=== PATIENT | female | born 1970 | race Caucasian/White ===

== ENCOUNTER 2023-04-04 07:15 | Emergency (ER) | payer OTHER, SELFPAY ==
[2023-04-04 07:20] VITALS: BP 128/71; PULSE 94; RESP 18; TEMP 37.2; O2SAT 96; BMI 51.7
--- NOTE | 2023-04-04 07:46 | ED.GENADULT ---
HPI - General Adult General Chief complaint: Skin/Abscess/Foreign Body Stated complaint: Rear ignacio Time Seen by Provider: 04/04/23 07:24 Source: patient Mode of arrival: ambulatory Limitations: no limitations History of Present Illness HPI narrative: 53-year-old female with insulin-dependent diabetes, known to me from [facility] presents the emergency department with tenderness and swelling of her left gluteal area. This started a couple days ago. There may have been a small pimple or similar superficial skin lesion that she thinks may have popped. Since then she has noticed increased tenderness and swelling, no fluctuant area or further drainage. No trauma or injury. No difficulty with voiding or stooling. Is feeling like a low-grade fever today and is noticing that her blood sugars have been on characteristically high for the last couple of days, 3-400. No nausea or vomiting, no shortness of breath or weakness. No prior history of similar lesions. No prior history of surgery or surgical drainage to this area. Pain is achy and constant, worse to palpation. Does not radiate. Past medical history notable for hypertension, diabetes, obesity. Medications are reviewed and listed is accurate per nursing notes. She has an allergy to a tore the statin and contrast dye but no other medications or antibiotics. She is a nonsmoker. ROS is notable for the skin concerns as above, otherwise denies times 12 systems. Related Data Home Medications Medication Instructions Recorded Confirmed blood-glucose sensor (Dexcom G6 #3 ea 05/08/22 08/05/22 Sensor device) blood-glucose transmitter (Dexcom #1 ea 05/08/22 08/05/22 G6 Transmitter device) celecoxib 200 mg capsule 200 mg PO PRN 05/08/22 08/05/22 dulaglutide 1.5 mg/0.5 mL ml subcut 05/08/22 08/05/22 subcutaneous pen injector (Trulicity) insulin aspart U-100 100 unit/mL ml subcut 05/08/22 08/05/22 (3 mL) subcutaneous pen (Novolog FlexPen U-100 Insulin aspart) insulin degludec 200 unit/mL (3 unit subcut 05/08/22 08/05/22 mL) subcutaneous pen (Tresiba FlexTouch U-200 insulin) lisinopril 10 mg tablet 10 mg PO QDAY 05/08/22 08/05/22 metformin 500 mg tablet,extended ea PO 05/08/22 08/05/22 release 24 hr pen needle, diabetic 31 gauge x #1,200 ea 05/08/22 08/05/22 5/16 (BD Ultra-Fine Short Pen Needle) pravastatin 80 mg tablet 80 mg PO 05/08/22 08/05/22 Allergies Allergy/AdvReac Type Severity Reaction Status Date / Time atorvastatin [From Lipitor] Allergy sore Verified 08/22/22 10:19 joints and muscles bee venom protein (honey bee) Allergy Anaphylaxis Verified 08/22/22 10:19 contrast dye AdvReac nausea and Uncoded 08/22/22 10:19 vomiting PFSH PFSH Surgical History S/P right knee arthroscopy (03/15/09) ?Z98.890 - Other specified postprocedural states (ICD-10) Status post arthroscopic partial medial meniscectomy ?Z98.890 - Other specified postprocedural states (ICD-10) Status post right rotator cuff repair (01/10/15) ?Z98.890 - Other specified postprocedural states (ICD-10) History of foot surgery (07/05/18) ?Z98.890 - Other specified postprocedural states (ICD-10) Social History Smoking Status: Former smoker What tobacco products do you use: cigarettes Smoking quit date/years: >15 years ago Exam Const: Vital Signs, click to edit/add: Vital Signs - 24 hr 04/04/23 07:20 Temperature 98.9 F Pulse Rate [Right Pulse Oximeter] 94 Respiratory Rate 18 Blood Pressure [Ri ght Upper Arm] 128/71 Pulse Oximetry 96 Oxygen Delivery Me thod Room Air Documenting provider has reviewed patient's vital signs: yes Common normals: no apparent distress General appearance: cooperative, comfortable and well kempt Other: Good historian. Appears well nourished, well hydrated, nontoxic. HENMT: Common normals: normocephalic Head and scalp: normocephalic Other: Normal lips and moist mucosa Eye: Other: Normal appearing eyes, visual days and eye contact. Resp: Common normals: normal respiratory effort and no use of accessory muscles Effort & inspection: able to speak in complete sentences Back & Pelvis: Other: Gluteal areas examined. There is a slight carla hue but no redness on the left upper gluteal region, near the gluteal cleft. It feels slightly [place] and is mildly tender but there is no area of fluctuance. Extensive exploration does not reveal any open wound, pore or broken skin. Good hygiene. Normal appearing rectal mucosa. Does have a gluteal cleft superiorly but no evidence of fistula or tracking. Overall swollen area is probably about 4 cm x 4 cm, round and not especially raised. It is not warm to the touch. Extremity: Common normals: normal capillary refill and no pedal edema Neuro: Speech: speech normal Gait (neuro): normal gait Motor exam: no movement abnormalities noted Psych: Appearance: well kempt Attitude: engaged Insight: insight good Judgement: judgment good Skin: Common normals: no rashes or lesions noted Narrative: No other skin lesions or rashes appreciated. General skin exam: no rashes or lesions noted Course Course Hospital Course: Seems to be an early abscess. Cannot exclude fistula or communication with skin. The area currently is quite [place] and nonfluctuant. I do not think advanced imaging will be helpful. It seems like we are catching this developing infection early. There are no fevers or systemic symptoms to suggest sepsis at this time. Elevated blood sugars are not surprising in the setting of this pathology. Initially, we discussed blood sugar management. She will increase her short-acting insulin 20-25% and re-dose every 3 hours as needed to bring blood sugars under 200. This will help fight infection. She will leave her other interventions including long-acting insulin the same as once the patient starts antibiotics are blood sugars do tend to improve fairly rapidly. Counseled that this still may require surgical drainage but it is not ready at this time as there is no fluctuant area. Antibiotics have a greater than 50% chance of treating this infection without the need for drainage. I would like for her to follow-up with the general surgery team in 2-3 days for recheck and drainage if indicated at that time. Referral has been placed. Counseled on alarm symptoms that would warrant repeat ED presentation. She verbalized understanding and agreement. Okay to use Tylenol and ibuprofen as needed for pain control. Counseled on Sitz baths. Begin combined Bactrim and doxycycline for antibiotic control. She verbalizes understanding and agreement and has no further questions. Vital Signs Vital signs: Initial Vital Signs Temperature 98.9 F 04/04/23 07:20 Temperature Source Temporal Artery Scan 04/04/23 07:20 Pulse Rate 94 04/04/23 07:20 Respiratory Rate 18 04/04/23 07:20 Blood Pressure 128/71 04/04/23 07:20 Blood Pressure Mean 90 04/04/23 07:20 Blood Pressure Position Sitting 04/04/23 07:20 Pulse Oximetry 96 04/04/23 07:20 Oxygen Delivery Method Room Air 04/04/23 07:20 Vital Signs Temperature 98.9 F 04/04/23 07:20 Pulse Rate 94 04/04/23 07:20 Respiratory Rate 18 04/04/23 07:20 Blood Pressure 128/71 04/04/23 07:20 Pulse Oximetry 96 04/04/23 07:20 Oxygen Delivery Method Room Air 04/04/23 07:20 Temperature 98.9 F 04/04/23 07:20 Pulse Rate 94 04/04/23 07:20 Respiratory Rate 18 04/04/23 07:20 Blood Pressure 128/71 04/04/23 07:20 Pulse Oximetry 96 04/04/23 07:20 Oxygen Delivery Method Room Air 04/04/23 07:20 Discharge Plan Discharge Clinical Impression: Pilonidal abscess Patient Disposition: Home w/ Parent or Adult Condition: Stable Instructions: Pilonidal Cyst (ED), Sitz Bath (DC) Additional Instructions: As we discussed, there seems to be a developing abscess on your bottom. Unfortunately, these are quite common. Often, these need to be drained by a simple office procedure. Unfortunately, the abscess has not matured enough to be drained. Hopefully, if we start antibiotics, we can prevent things from worsening and ultimately heal without needing to perform any procedures. A history of diabetes does increase your risk of worsening infection. I have started you on a combination of 2 antibiotics. These are okay to take at the same time. Both may cause diarrhea and tummy upset. It is okay to use Imodium to help counteract any diarrhea and any antacids that you may find helpful. This needs to be rechecked in 2-3 days. It is likely to require drainage at that time, therefore I will have you follow-up with 1 of our general surgeons. Please call them to coordinate an appointment for Thursday or Thursday. Please try to call right away on Thursday morning. I have submitted a referral so this should help prompt the appointment as well. I would like for you to do Sitz baths which are just basically soaking your bottom in warm soapy water for 20 minutes twice daily. This can often bring the infection to the surface of the skin and promote drainage which is actually helpful. If it does drain, this is a good thing and would not necessarily warrant earlier follow-up. If it does drain, please continue the antibiotics. It is okay to use Tylenol and/or ibuprofen for pain control if needed, sleep aids like melatonin or Tylenol p.m. for sleep. Sometimes these infections worsen. If you start having high fevers, marked worsening in swelling, severe weakness or other complications, come back to the emergency department. Increase your short-acting insulin as needed, every 3 hours to bring your blood sugars back under 200. Take your antibiotics for 10 days or unless directed otherwise. You may have extra tablets due to the quantities automatically put into the vending machine. Activity Level: Activity as Tolerated Discharge Diet: Regular Prescriptions: No Action Tresiba FlexTouch U-200 200 unit/mL (3 mL) insulin pen subcut metformin 500 mg tablet extended release 24 hr PO lisinopril 10 mg tablet 10 mg PO QDAY pravastatin 80 mg tablet 80 mg PO (DME) Dexcom G6 Sensor Device See Rx Instructions .ROUTE .MEDSUPPLY Qty: 3 Patient Comments: USE DIRECTED Rx Instructions: As directed celecoxib 200 mg capsule 200 mg PO PRN Patient Comments: TAKE 1 CAPSULE BY MOUTH ONCE DAILY WITH A MEAL. USE ONLY NEEDED FOR PAIN Trulicity 1.5 mg/0.5 mL pen injector subcut Patient Comments: ADMINISTER 1.5 MG UNDER THE SKIN 1 TIME WEEKLY insulin aspart U-100 [Novolog FlexPen U-100 Insulin] 100 unit/mL (3 mL) insulin pen subcut (DME) Dexcom G6 Transmitter Device See Rx Instructions .ROUTE .MEDSUPPLY Qty: 1 Patient Comments: USE DIRECTED Rx Instructions: As directed (DME) pen needle, diabetic [BD Ultra-Fine Short Pen Needle] 31 gauge x 5/16 needle See Rx Instructions .ROUTE .MEDSUPPLY Qty: 1200 Patient Comments: USE TO ADMINISTER INSULIN AT HOME Rx Instructions: As directed Follow Up/Referrals: Cal Ferraro MD [Staff Physician] - 2 Days (Recheck pilonidal early abscess, per surgeon, Thursday or Thursday, okay to schedule with partner) Wander Marin MD [Referring] - Stand Alone Forms: [employer] Info Instructions
[2023-04-04] MEDS: DOXYCYCLINE HYCLATE 100 MG PO (07:57)
== END 2023-04-04 08:02 | disposition home or self-care (01) ==
LOC: ED 07:51
PROVIDERS: Emergency Provider Family Medicine
DX: L05.01 Pilonidal cyst with abscess (principal)
CPT/HCPCS: 99283; A9270

== ENCOUNTER 2023-04-07 10:44 | Outpatient (CLI) | payer OTHER, SELFPAY ==
--- NOTE | 2023-04-07 11:30 | CRLHL7_ITS ---
For Patients: As a result of the Century Cures Act, medical imaging exams and procedure reports are released immediately into your electronic medical record. You may view this report before your referring provider. If you have questions, please contact your health care provider. INDICATION: Pilonidal cyst with abscess. TECHNIQUE: CT pelvis without contrast. COMPARISON: None. FINDINGS: A 5 x 2 cm abscess suspected in the left perineum near the midline seen for example on axial series 6, image 6. Extensive air is present in the superficial soft tissues in this same general region. No other fluid collections. Remainder of the pelvic soft tissues are unremarkable. Visualized GI tract unremarkable. Pelvic organs unremarkable. No sign of osteomyelitis. IMPRESSION: 5 x 2 cm left perineal abscess with the larger area of surrounding soft tissue air. Please note that all CT scans at this facility use dose modulation, iterative reconstruction, and/or weight-based dosing when appropriate to reduce radiation dose to as low as reasonably achievable. Dictated by Aly Mattson MD @ 04/07/2023 1:50:14 PM (Electronically Signed)
== END 2023-04-07 10:45 | disposition home or self-care (01) ==
PROVIDERS: PCP Family Medicine; Visit Provider Surgery
DX: L05.01 Pilonidal cyst with abscess (principal)
CPT/HCPCS: 72192; 80048

== ENCOUNTER 2023-04-07 12:07 | Inpatient (IN) | payer OTHER, SELFPAY ==
[2023-04-07 12:19] VITALS: O2SAT 93
[2023-04-07] MEDS: 0.9 % SODIUM CHLORIDE 1000 ml 1,000 ML 2000 ML IV ×2 (12:53→13:57)
[2023-04-07] MEDS: PIPERACILLIN/TAZOBACTAM 4.5 GM in 0.9 % SODIUM CHLORIDE Mini-bag 100 ML IVPB (12:57)
[2023-04-07 12:59] LABS: HCO3 VBG 25 mmol/L (21-28); Lactate* 2.1 mmol/L (0.5-1.9); PCO2 VBG 40 mmHG (40-50); PO2 VBG 30.4 mmHG (25-47); pH VBG 7.408 (7.32-7.43)
[2023-04-07 13:13] VITALS: BP 142/73; PULSE 112; RESP 22; TEMP 36.7; O2SAT 93; BMI 51.7
[2023-04-07 13:18] LABS: Albumin* 3.1 g/dL (3.3-5.0); Chloride* 98 mmol/L (96-114)
[2023-04-07 13:19] LABS: Potassium* 3.8 mmol/L (3.6-5.1); Sodium* 131 mmol/L (135-149)
[2023-04-07 13:21] LABS: Creatinine* 0.7 mg/dL (0.5-1.5); Est. Creatinine Clearance* 104.79; Estimated Glomerular Filt Rate 102 ml/min
[2023-04-07 13:22] LABS: Alanine Aminotransferase* 21 U/L (4-35); Alkaline Phosphatase* 196 U/L (40-150); Anion Gap 11 mEq/L (7-15); Aspartate Amino Transferase* 20 U/L (12-35); Bilirubin Total* 0.9 mg/dL (0.1-1.5); Blood Urea Nitrogen* 19 mg/dL (7-30); Carbon Dioxide* 22 mmol/L (20-32); Glucose* 328 mg/dL (60-115); Total Protein* 6.1 g/dL (6.0-8.3)
[2023-04-07] MEDS: HYDROmorphone 0.5 mg/0.5 ml inj IVP ×2 (13:34→16:09)
[2023-04-07] MEDS: SODIUM CHLORIDE 0.9 % (FLUSH) 10 ML SYRINGE 5 ML IVF (13:35)
[2023-04-07 13:39] LABS: Procalcitonin* 1.12 ng/mL (<0.50)
--- NOTE | 2023-04-07 14:15 | PM.IMHP1 ---
Hospitalist- H&P: HPI History of Present Illness Time Seen by Provider: 11:00 Date Seen: 04/07/23 Chief complaint: Direct Admit Narrative: Jw Alcaraz is a 53 year old female with IDDM who noticed a tender spot on her left buttock about 5 days ago and it got worse, hard, and tender. She had a fever Thursday night and broke out in a sweat when it broke. She has not had any other fevers, chills, or rigors. She overall feels okay, but when she got up to the floor she started vomiting and noted that she did not know where that came from and had not been nauseous or throwing up prior to this. She presented originally to the surgery clinic today where Dr. Cooper saw her. Dr. Cooper ordered labs and a CT and asked that she be admitted directly from clinic. Review of Systems Status of ROS: Reports: 10 or more systems reviewed and unremarkable except as noted in History and below [facility] Medical History (Updated 04/07/23 @ 14:51 by Kerri Gupta MD) Adhesive capsulitis of left shoulder ?M75.02 - Adhesive capsulitis of left shoulder (ICD-10) Subscapularis tendinitis of right shoulder ?M77.8 - Other enthesopathies, not elsewhere classified (ICD-10) Degenerative arthritis of left knee ?M17.12 - Unilateral primary osteoarthritis, left knee (ICD-10) Diabetic neuropathy ?E11.40 - Type 2 diabetes mellitus with diabetic neuropathy, unspecified (ICD-10) Plantar fasciitis ?M72.2 - Plantar fascial fibromatosis (ICD-10) Malignant neoplasm cervix (~2002) ?C53.9 - Malignant neoplasm of cervix uteri, unspecified (ICD-10) Asthma ?J45.909 - Unspecified asthma, uncomplicated (ICD-10) Extended spectrum beta lactamase (ESBL) resistance ?Z16.12 - Extended spectrum beta lactamase (ESBL) resistance (ICD-10) HTN (hypertension) ?I10 - Essential (primary) hypertension (ICD-10) JOLIE (obstructive sleep apnea) ?G47.33 - Obstructive sleep apnea (adult) (pediatric) (ICD-10) GERD (gastroesophageal reflux disease) ?K21.9 - Gastro-esophageal reflux disease without esophagitis (ICD-10) Hyperlipidemia ?E78.5 - Hyperlipidemia, unspecified (ICD-10) Diabetes mellitus ?E11.9 - Type 2 diabetes mellitus without complications (ICD-10) Morbid obesity with BMI of 50.0-59.9, adult ?E66.01 - Morbid (severe) obesity due to excess calories (ICD-10) ?Z68.43 - Body mass index [BMI] 50.0-59.9, adult (ICD-10) Osteoarthritis of knees, bilateral ?M17.0 - Bilateral primary osteoarthritis of knee (ICD-10) Surgical History (Updated 04/07/23 @ 14:36 by Kerri Gupta MD) H/O colposcopy with cervical biopsy ?Z98.890 - Other specified postprocedural states (ICD-10) S/P laparoscopic cholecystectomy (~02/2005) ?Z90.49 - Acquired absence of other specified parts of digestive tract (ICD-10) S/P right knee arthroscopy (03/15/09) ?Z98.890 - Other specified postprocedural states (ICD-10) Status post arthroscopic partial medial meniscectomy ?Z98.890 - Other specified postprocedural states (ICD-10) Status post right rotator cuff repair (01/10/15) ?Z98.890 - Other specified postprocedural states (ICD-10) History of foot surgery (07/05/18) ?Z98.890 - Other specified postprocedural states (ICD-10) Family History (Updated 04/07/23 @ 14:37 by Kerri Gupta MD) Paternal Grandmother Alcohol dependence Aunt Breast cancer Paternal Grandfather Diabetes Mother Colon cancer High blood pressure Other Drug dependence Social History (Updated 04/07/23 @ 14:38 by Kerri Gupta MD) Narrative: Works as recreation advisor for [employer] What is your current living situation?: I presently have a place to live Problems where you live: no known problems Problems where you live details: none In the past 12 months, utilities in danger of being shut off: no In the past 12 mos, have been you worried that your food would run out before you had money to buy more?: never true In the past 12 mos, the food you bought just didn't last and you didn't have money to buy more?: never true Highest level of school completed/degree received: Bachelor's degree Smoking Status: Former smoker What tobacco products do you use: cigarettes Smoking quit date/years: >15 years ago Caffeine: Yes How often does anyone, including family, friends and others, physically hurt you: never How often does anyone, including family, friends and others, insult or talk down to you: never How often does anyone, including family, friends and others, threaten you with harm: never How often does anyone, including family, friends and others, scream or curse at you: never service: No Meds Home Medications and Allergies Home Medications Medication Instructions Recorded Confirmed Type blood-glucose sensor (Dexcom G6 #3 ea 05/08/22 04/07/23 History Sensor device) blood-glucose transmitter (Dexcom #1 ea 05/08/22 04/07/23 History G6 Transmitter device) celecoxib 200 mg capsule 200 mg PO Q24H PRN 05/08/22 04/07/23 History dulaglutide 1.5 mg/0.5 mL 1.5 mg subcut Q7D 05/08/22 04/07/23 History subcutaneous pen injector (Trulicity) insulin aspart U-100 100 unit/mL 1 sliding scale dose subcut 05/08/22 04/07/23 History (3 mL) subcutaneous pen (Novolog TIDWMEAL FlexPen U-100 Insulin aspart) insulin degludec 200 unit/mL (3 250 unit subcut DAILY 05/08/22 04/07/23 History mL) subcutaneous pen (Tresiba FlexTouch U-200 insulin) lisinopril 10 mg tablet 10 mg PO QDAY 05/08/22 04/07/23 History pen needle, diabetic 31 gauge x #1,200 ea 05/08/22 04/07/23 History 5/16 (BD Ultra-Fine Short Pen Needle) insulin aspart U-100 100 unit/mL 25 unit subcut TIDWMEAL 04/07/23 04/07/23 History (3 mL) subcutaneous pen (Novolog FlexPen U-100 Insulin aspart) simvastatin 10 mg tablet 10 mg PO QHS 04/07/23 04/07/23 History Allergies Allergy/AdvReac Type Severity Reaction Status Date / Time atorvastatin [From Lipitor] Allergy sore Verified 04/07/23 10:33 joints and muscles bee venom protein (honey bee) Allergy Anaphylaxis Verified 04/07/23 10:33 contrast dye AdvReac nausea and Uncoded 04/07/23 10:33 vomiting Exam Narrative: Exam Narrative: General: No acute distress. Awake alert oriented x3. Morbidly obese. HEENT: Normocephalic atraumatic, pupils equally round and reactive to light and accommodation. Oropharynx clear. Mucous membranes are moist. No cervical lymphadenopathy, thyromegaly or carotid bruits. No JVD. Cardiovascular: Mildly tachycardic, regular. No murmurs, gallops, or rubs. Chest: No increased work of breathing. No use of accessory muscles. Clear to auscultation bilaterally. No crackles or wheezes. Abdomen: Bowel sounds present. Soft, nondistended, nontender. Genitourinary: Tender induration of the left buttock from inside the gluteal fold that extends down to the anus, but does not involve it circumferentially. There is no peritoneal induration or erythema. No fluctuance, blistering or necrosis. No crepitus. Area of erythema is approximately 10 inches in diameter. Extremities: No edema, no cyanosis or clubbing. Skin: No jaundice, no pallor, no rashes. Neuro: Grossly intact. No focal deficits. Const: Vital Signs, click to edit/add: Vital Signs - 24 hr 04/07/23 12:19 04/07/23 13:13 04/07/23 13:13 Temperature 98.0 F Pulse Rate [Pulse Oximeter] 112 H Respiratory Rate 22 Blood Pressure [Ri ght Arm] 142/73 H Pulse Oximetry 93 93 93 Oxygen Delivery Mi thod Room Air Hospitalist - H&P: Result Labs Labs: BMP 04/07/23 12:39 Sodium 131 L Potassium 3.8 Chloride 98 Carbon Dioxide 22 BUN 19 Creatinine 0.7 Glucose 328 H Liver Function 04/07/23 Range/Units 12:39 Total Bilirubin 0.9 (0.1-1.5) mg/dL AST 20 (12-35) U/L ALT 21 (4-35) U/L Alkaline Phosphatase 196 H (40-150) U/L Albumin 3.1 L (3.3-5.0) g/dL Ordering Physician: Petra Cooper M.D. Date of Service: 04/07/23 Procedure(s): CT pelvis wo con Accession Number(s): [id number] cc: Angelia Ngo M.D.; Petra Cooper M.D.~ For Patients: As a result of the 21st Century Cures Act, medical imaging exams and procedure reports are released immediately into your electronic medical record. You may view this report before your referring provider. If you have questions, please contact your health care provider. INDICATION: Pilonidal cyst with abscess. TECHNIQUE: CT pelvis without contrast. COMPARISON: None. FINDINGS: A 5 x 2 cm abscess suspected in the left perineum near the midline seen for example on axial series 6, image 6. Extensive air is present in the superficial soft tissues in this same general region. No other fluid collections. Remainder of the pelvic soft tissues are unremarkable. Visualized GI tract unremarkable. Pelvic organs unremarkable. No sign of osteomyelitis. IMPRESSION: 5 x 2 cm left perineal abscess with the larger area of surrounding soft tissue air. Please note that all CT scans at this facility use dose modulation, iterative reconstruction, and/or weight-based dosing when appropriate to reduce radiation dose to as low as reasonably achievable. Dictated by Aly Mattson MD @ 04/07/2023 1:50:14 PM (Electronically Signed) Assessment and Plan Assessment and plan (1) Sepsis: Problem comment: Secondary to left buttock cellulitis. Admit to CCU. Obtain sepsis labs including lactate and blood cultures. Start Zosyn and vancomycin. Give IV fluid bolus of 2 L and recheck lactate. If lactate remains elevated, give more IV fluid. Keep NPO as I anticipate she will need surgery. Status: Acute (2) Necrotizing soft tissue infection: Problem comment: Concerning for possible Patrick's gangrene, transfer to colorectal surgery Status: Acute (3) Cellulitis of buttock: Problem comment: Left Status: Acute (4) JOLIE (obstructive sleep apnea): Problem comment: 01/29/2019 AHI-5, in REM 17 Asymptomatic Not in menopause yet High risk to occur as she gets older Status: Chronic (5) HTN (hypertension): Status: Chronic (6) GERD (gastroesophageal reflux disease): Problem comment: EGD 02/2011 gastroesophogeal reflux disease Status: Acute (7) Morbid obesity with BMI of 50.0-59.9, adult: Problem comment: BMI 54.7 Status: Acute (8) Diabetes mellitus: Problem comment: - Insulin-dependent - Diagnosis 1999. Type II on diagnosis Office visit 08/26 Discussed adding in novolog possibly next visit and focusing on carb counting and a set carb plan daily ~ Apr 2011: starting novalog with meals (A1c 9), stopping byetta, decreasing glucotrol XL slightly. Continue lantus, but decrease dose form 100 down to 80 while starting novalog. Next eye exam 29 July 2015: Endocrinology consult Dr. Waters: Stop Glypizide, start Bydureon 2mg once weekly. 05/08/22 HgbA1C 7.9% Status: Chronic (9) Hyperlipidemia: Problem comment: Apr 2011: changed from simvastatin 80mg to pravastatin due to muscle injury risk. February 2014: new recs, changed form pravastatin/zetia to Atorvastatin (Lipitor) 80mg. March 2014: Muscle soreness shortly after starting Atorvastatin (Lipitor), CK normal. Plan to restart pravastatin. Status: Chronic Plan Critical care time: 60 minutes for time spent in direct patient care, consultation with general surgery, discussion with staff, review of patient's medical chart and imaging, phone calls for transfer.
[2023-04-07 14:44] LABS: Lactate* 1.7 mmol/L (0.5-1.9)
--- NOTE | 2023-04-07 14:45 | PC.NURSE ---
End of Shift Note: I assumed care of patient once provider made the decision to have patient ccu status. Only have take care patient for a couple of hours she is alert and orientated. Did receive a dose of Dilaudid for the pain she is having. After receiving pain medication she is resting better. She will be transferring to a higher level care at some point today. She did ambulate to the bathroom with stand by assist. Currently awaiting her labs results to see what we are doing next for interventions.
--- NOTE | 2023-04-07 14:52 | P.DS_ITS ---
Transfer Discharge Sum: Prov Provider Date Seen: 04/07/23 Date of admission: 04/07/23 12:07 Primary care physician: Angelia Ngo MD Attending physician on discharge: Kerri Gupta Anticipated date of transfer: 04/07/23 Receiving physician/facility: [facility], Dr. Arechiga DS: Diagnosis Discharge Diagnosis (1) Sepsis: Status: Acute Problem details: Secondary to left buttock cellulitis. Admit to CCU. Obtain sepsis labs including lactate and blood cultures. Start Zosyn and vancomycin. Give IV fluid bolus of 2 L and recheck lactate. If lactate remains elevated, give more IV fluid. Keep NPO as I anticipate she will need surgery. 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 February 2014: new recs, changed form pravastatin/zetia to Atorvastatin (Lipitor) 80mg. March 2014: Muscle soreness shortly after starting Atorvastatin (Lipitor), CK normal. Plan to restart pravastatin. (7) Morbid obesity with BMI of 50.0-59.9, adult: Status: Acute Problem details: BMI 54.7 (8) Diabetes mellitus: Status: Chronic Problem details: - Insulin-dependent - Diagnosis 1999. Type II on diagnosis Office visit 08/26 Discussed adding in novolog possibly next visit and focusing on carb counting and a set carb plan daily ~ Apr 2011: starting novalog with meals (A1c 9), stopping byetta, decreasing glucotrol XL slightly. Continue lantus, but decrease dose form 100 down to 80 while starting novalog. Next eye exam 29 July 2015: Endocrinology consult Dr. Waters: Stop Glypizide, start Bydureon 2mg once weekly. 05/08/22 HgbA1C 7.9% Transfer Discharge Sum: Med Medications Active and Home Medications: Home Medications blood-glucose sensor (Dexcom G6 Sensor device) #3 ea 05/08/22 [History Confirmed 04/07/23] blood-glucose transmitter (Dexcom G6 Transmitter device) #1 ea 05/08/22 [History Confirmed 04/07/23] celecoxib 200 mg capsule 200 mg PO Q24H PRN 05/08/22 [History Confirmed 04/07/23] dulaglutide 1.5 mg/0.5 mL subcutaneous pen injector (Trulicity) 1.5 mg subcut Q7D 05/08/22 [History Confirmed 04/07/23] insulin aspart U-100 100 unit/mL (3 mL) subcutaneous pen (Novolog FlexPen U-100 Insulin aspart) 1 sliding scale dose subcut TIDWMEAL 05/08/22 [History Confirmed 04/07/23] insulin degludec 200 unit/mL (3 mL) subcutaneous pen (Tresiba FlexTouch U-200 insulin) 250 unit subcut DAILY 05/08/22 [History Confirmed 04/07/23] lisinopril 10 mg tablet 10 mg PO QDAY 05/08/22 [History Confirmed 04/07/23] pen needle, diabetic 31 gauge x 5/16 (BD Ultra-Fine Short Pen Needle) #1,200 ea 05/08/22 [History Confirmed 04/07/23] insulin aspart U-100 100 unit/mL (3 mL) subcutaneous pen (Novolog FlexPen U-100 Insulin aspart) 25 unit subcut TIDWMEAL 04/07/23 [History Confirmed 04/07/23] simvastatin 10 mg tablet 10 mg PO QHS 04/07/23 [History Confirmed 04/07/23] Active Medications Hydromorphone HCl (Hydromorphone 0.5 Mg/0.5 Ml Inj) 0.5 - 1 mg IVP Q1H PRN PRN Reason: Pain Last Admin: 04/07/23 13:34 Dose: 1 mg Piperacillin Sod/Tazobactam (Sod 4.5 gm/ Sodium Chloride) 100 mls @ 200 mls/hr IVPB Q6H TEE Last Infusion: 04/07/23 14:11 Dose: Infused Vancomycin HCl 2,000 mg/ (Sodium Chloride) 520 mls @ 260 mls/hr IVPB ONCE ONE; Protocol Stop: 04/07/23 15:59 Insulin Aspart (Insulin Aspart 100 Unit/Ml (Novolog)) 0 unit SUBCUT 0000,0600,1200,1800 [facility]; Protocol Ondansetron HCl (Ondansetron 2 Mg/Ml Inj) 4 mg IVP Q4H PRN PRN Reason: Nausea Sodium Chloride (Sodium Chloride 0.9 % (Flush) 10 Ml Syringe) 5 ml IVF .FLUSH PRN Last Admin: 04/07/23 13:35 Dose: 5 ml Sodium Chloride (Sodium Chloride 0.9 % (Flush) 10 Ml Syringe) 5 ml IVF BID TEE Transfer Discharge Sum: Hosp Hospital Course Hospital course: Jw Alcaraz is a 53 year old female with IDDM who presented through surgery clinic for left buttock cellulitis and was found to have perineal abscess with surrounding gas on CT and sepsis. 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 Time Spent with Patient Time attestation: Total time spent providing and/or coordinating transfer services: Exam Narrative: Exam Narrative: See H&P Const: Vital Signs, click to edit/add: Vital Signs - 24 hr 04/07/23 12:19 04/07/23 13:13 04/07/23 13:13 Temperature 98.0 F Pulse Rate [Pulse Oximeter] 112 H Respiratory Rate 22 Blood Pressure [Ri ght Arm] 142/73 H Pulse Oximetry 93 93 93 Oxygen Delivery Me thod Room Air Transfer Discharge Sum: Data Data Completed and Pending Completed studies during hospitalization: Ordering Physician: Petra Coopre M.D. Date of Service: 04/07/23 Procedure(s): CT pelvis [facility] Accession Number(s): [id number] cc: Angelia Ngo M.D.; Petra Cooper M.D.~ For Patients: As a result of the Cures Act, medical imaging exams and procedure reports are released immediately into your electronic medical record. You may view this report before your referring provider. If you have questions, please contact your health care provider. INDICATION: Pilonidal cyst with abscess. TECHNIQUE: CT pelvis without contrast. COMPARISON: None. FINDINGS: A 5 x 2 cm abscess suspected in the left perineum near the midline seen for example on axial series 6, image 6. Extensive air is present in the superficial soft tissues in this same general region. No other fluid collections. Remainder of the pelvic soft tissues are unremarkable. Visualized GI tract unremarkable. Pelvic organs unremarkable. No sign of osteomyelitis. IMPRESSION: 5 x 2 cm left perineal abscess with the larger area of surrounding soft tissue air. Please note that all CT scans at this facility use dose modulation, iterative reconstruction, and/or weight-based dosing when appropriate to reduce radiation dose to as low as reasonably achievable. Dictated by Aly Mattson MD @ 04/07/2023 1:50:14 PM (Electronically Signed) Discharge Plan Discharge Disposition: [facility] Discharge Location: [facility] Date of Admission: 04/07/23 12:07 Attending Physician on Admission: Kerri Gupta Attending Provider on Discharge: Kerri Gupta Primary Care Provider: Angelia Ngo Discharge Medications: No Action insulin degludec [Tresiba FlexTouch U-200] 200 unit/mL (3 mL) insulin pen 250 unit subcut DAILY lisinopril 10 mg tablet 10 mg PO QDAY (DME) Dexcom G6 Sensor Device See Rx Instructions .ROUTE .MEDSUPPLY Qty: 3 Patient Comments: USE DIRECTED Rx Instructions: As directed celecoxib 200 mg capsule 200 mg PO Q24H PRN Patient Comments: TAKE 1 CAPSULE BY MOUTH ONCE DAILY WITH A MEAL. USE ONLY NEEDED FOR PAIN Trulicity 1.5 mg/0.5 mL pen injector 1.5 mg subcut Q7D Patient Comments: ADMINISTER 1.5 MG UNDER THE SKIN 1 TIME WEEKLY insulin aspart U-100 [Novolog FlexPen U-100 Insulin] 100 unit/mL (3 mL) in sulin pen 1 sliding scale dose subcut TIDWMEAL (DME) Dexcom G6 Transmitter Device See Rx Instructions .ROUTE .MEDSUPPLY Qty: 1 Patient Comments: USE DIRECTED Rx Instructions: As directed (DME) pen needle, diabetic [BD Ultra-Fine Short Pen Needle] 31 gauge x 5/16 needle See Rx Instructions .ROUTE .MEDSUPPLY Qty: 1200 Patient Comments: USE TO ADMINISTER INSULIN AT HOME Rx Instructions: As directed simvastatin 10 mg tablet 10 mg PO QHS insulin aspart U-100 [Novolog FlexPen U-100 Insulin] 100 unit/mL (3 mL) insulin pen 25 unit subcut TIDWMEAL Follow Up Appointments: Angelia Ngo MD [Primary Care Provider] - Forms: [facility] Info Instructions Oxygen: No Urinary Catheter: No
[2023-04-07] MEDS: LACTATED RINGERS 1000 ML 1,000 ML 100 ML IV (14:59)
[2023-04-07 15:06] VITALS: BP 126/63; PULSE 105; RESP 16; TEMP 37.3; O2SAT 92
[2023-04-07 15:14] VITALS: PULSE 105
[2023-04-07 15:15] VITALS: O2SAT 92
[2023-04-07 15:19] VITALS: PULSE 106
--- NOTE | 2023-04-07 16:30 | ED.NURSE ---
Pt discharged via EMS @ 1420. 1mg Dilaudid given prior to leaving. Pt comfortable, voided, VS unremarkable. Tele Sinus Tack at 105.
[2023-04-10 14:03] LABS: Calcium* 8.9 mg/dL (8.4-10.6)
== END 2023-04-07 16:22 | disposition short-term general hospital (02) | DRG 871 ==
PROVIDERS: Admitting Provider Family Medicine; PCP Family Medicine; Visit Provider Family Medicine
DX: A41.9 Sepsis, unspecified organism (principal); L03.317 Cellulitis of buttock; M72.6 Necrotizing fasciitis; Z68.43 Body mass index [BMI] 50.0-59.9, adult; G47.33 Obstructive sleep apnea (adult) (pediatric); I10 Essential (primary) hypertension; K21.9 Gastro-esophageal reflux disease without esophagitis; E66.01 Morbid (severe) obesity due to excess calories; E11.9 Type 2 diabetes mellitus without complications; Z79.4 Long term (current) use of insulin; E78.5 Hyperlipidemia, unspecified; Z79.85 Long-term (current) use of injectable non-insulin antidiabetic drugs
CPT/HCPCS: 36415; 72192; 80048; 80053; 82803; 82962; 83605; 84145; 86140; 87040; A0425; A0427; J1170; J2543; J3370; J7030; J7120

== ENCOUNTER 2023-04-18 23:51 | Emergency (ER) | payer OTHER, SELFPAY ==
[2023-04-19 00:24] VITALS: BP 154/69; PULSE 102; RESP 18; TEMP 35.4; O2SAT 96; BMI 50.3
--- NOTE | 2023-04-19 03:07 | ED.GENADULT ---
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 She had called male when they advised her to come to our emergency department not knowing that we do not manage wound vacs. She is understandably frustrated as we also had a couple hour wait due to significant patient volume. She was discharged yesterday, reports that things have been going pretty well. She is not febrile. She is no longer on antibiotics. She has brought her supplies. She is otherwise feeling well. Past medical history notable for diabetes, hypertension, recent sepsis with infection. Recent wound debridement and discharged from [facility] yesterday. Unfortunately home health has not yet been able to be established due to the holiday weekend. ROS notable only for the wound VAC concerns as above, otherwise denies times 12 systems. Related Data Home Medications Medication Instructions Recorded Confirmed blood-glucose sensor (Dexcom G6 #3 ea 05/08/22 04/19/23 Sensor device) blood-glucose transmitter (Dexcom #1 ea 05/08/22 04/19/23 G6 Transmitter device) celecoxib 200 mg capsule 200 mg PO Q24H PRN 05/08/22 04/19/23 dulaglutide 1.5 mg/0.5 mL 1.5 mg subcut Q7D 05/08/22 04/19/23 subcutaneous pen injector (Trulicity) insulin aspart U-100 100 unit/mL 1 sliding scale dose subcut 05/08/22 04/19/23 (3 mL) subcutaneous pen (Novolog TIDWMEAL FlexPen U-100 Insulin aspart) insulin degludec 200 unit/mL (3 250 unit subcut DAILY 05/08/22 04/19/23 mL) subcutaneous pen (Tresiba FlexTouch U-200 insulin) lisinopril 10 mg tablet 10 mg PO QDAY 05/08/22 04/19/23 pen needle, diabetic 31 gauge x #1,200 ea 05/08/22 04/19/23 5/16 (BD Ultra-Fine Short Pen Needle) insulin aspart U-100 100 unit/mL 25 unit subcut TIDWMEAL 04/07/23 04/19/23 (3 mL) subcutaneous pen (Novolog FlexPen U-100 Insulin aspart) simvastatin 10 mg tablet 10 mg PO QHS 04/07/23 04/19/23 gabapentin 300 mg capsule 300 mg PO 3XD 04/19/23 04/19/23 hydromorphone 2 mg tablet 2 mg PO DAILY 04/19/23 04/19/23 Allergies Allergy/AdvReac Type Severity Reaction Status Date / Time atorvastatin [From Lipitor] Allergy sore Verified 04/19/23 00:33 joints and muscles bee venom protein (honey bee) Allergy Anaphylaxis Verified 04/19/23 00:33 Iodinated Contrast Media AdvReac Mild Nausea Verified 04/19/23 00:33 [facility] Medical History Adhesive capsulitis of left shoulder ?M75.02 - Adhesive capsulitis of left shoulder (ICD-10) Subscapularis tendinitis of right shoulder ?M77.8 - Other enthesopathies, not elsewhere classified (ICD-10) Degenerative arthritis of left knee ?M17.12 - Unilateral primary osteoarthritis, left knee (ICD-10) Diabetic neuropathy ?E11.40 - Type 2 diabetes mellitus with diabetic neuropathy, unspecified (ICD-10) Plantar fasciitis ?M72.2 - Plantar fascial fibromatosis (ICD-10) Malignant neoplasm cervix (~2002) ?C53.9 - Malignant neoplasm of cervix uteri, unspecified (ICD-10) Asthma ?J45.909 - Unspecified asthma, uncomplicated (ICD-10) Extended spectrum beta lactamase (ESBL) resistance ?Z16.12 - Extended spectrum beta lactamase (ESBL) resistance (ICD-10) HTN (hypertension) ?I10 - Essential (primary) hypertension (ICD-10) JOLIE (obstructive sleep apnea) ?G47.33 - Obstructive sleep apnea (adult) (pediatric) (ICD-10) GERD (gastroesophageal reflux disease) ?K21.9 - Gastro-esophageal reflux disease without esophagitis (ICD-10) Hyperlipidemia ?E78.5 - Hyperlipidemia, unspecified (ICD-10) Diabetes mellitus ?E11.9 - Type 2 diabetes mellitus without complications (ICD-10) Morbid obesity with BMI of 50.0-59.9, adult ?E66.01 - Morbid (severe) obesity due to excess calories (ICD-10) ?Z68.43 - Body mass index [BMI] 50.0-59.9, adult (ICD-10) Osteoarthritis of knees, bilateral ?M17.0 - Bilateral primary osteoarthritis of knee (ICD-10) Surgical History H/O colposcopy with cervical biopsy ?Z98.890 - Other specified postprocedural states (ICD-10) S/P laparoscopic cholecystectomy (~02/2005) ?Z90.49 - Acquired absence of other specified parts of digestive tract (ICD-10) S/P right knee arthroscopy (03/15/09) ?Z98.890 - Other specified postprocedural states (ICD-10) Status post arthroscopic partial medial meniscectomy ?Z98.890 - Other specified postprocedural states (ICD-10) Status post right rotator cuff repair (01/10/15) ?Z98.890 - Other specified postprocedural states (ICD-10) History of foot surgery (07/05/18) ?Z98.890 - Other specified postprocedural states (ICD-10) Family History Paternal Grandmother Alcohol dependence Aunt Breast cancer Paternal Grandfather Diabetes Mother Colon cancer High blood pressure Other Drug dependence Social History Narrative: Works as recreation advisor for [employer] What is your current living situation?: I presently have a place to live Problems where you live: no known problems Problems where you live details: none In the past 12 months, utilities in danger of being shut off: no In the past 12 mos, have been you worried that your food would run out before you had money to buy more?: never true In the past 12 mos, the food you bought just didn't last and you didn't have money to buy more?: never true Highest level of school completed/degree received: Bachelor's degree Smoking Status: Former smoker Do you use any of these nicotine containing products: None Second hand tobacco smoke exposure: No How often do you have a drink containing alcohol: never AUDIT-C Alcohol total score: 0 Non-prescribed substance use: denies use Caffeine: Yes How often does anyone, including family, friends and others, physically hurt you: never How often does anyone, including family, friends and others, insult or talk down to you: never How often does anyone, including family, friends and others, threaten you with harm: never How often does anyone, including family, friends and others, scream or curse at you: never service: No Exam Const: Vital Signs, click to edit/add: Vital Signs - 24 hr 04/19/23 00:24 Temperature 95.8 F L Pulse Rate [Pulse Oximeter] 102 H Respiratory Rate 18 Blood Pressure [Ri ght Upper Arm] 154/69 H Pulse Oximetry 96 Oxygen Delivery Me thod Room Air Documenting provider has reviewed patient's vital signs: yes Common normals: no apparent distress General appearance: well kempt Other: Awake, alert, excellent historian. Eye: General eye: normal appearance of both eyes Resp: Common normals: normal respiratory effort Effort & inspection: able to speak in complete sentences Back & Pelvis: Other: Gluteal region with wound VAC in place, dressing unfortunately came loose from skin. Air leak noted. Sponge placement looks excellent. There is no surrounding redness or odor. No significant drainage. Psych: Appearance: well kempt Activity/motor behavior: appropriate eye contact Insight: insight good Judgement: judgment good Course Course Hospital Course: We spoke with the surgical team for [facility]. There were disappointed that we do not have the ability to change out the wound VAC at our ED. they requested that we remove the wound VAC and dressings. We rinsed and irrigate the wound with saline, pack and re-dress. They will contact her in the daylight hours today to get her an outpatient appointment to have the wound VAC reapplied. We spoke with Dr. Ron. I personally removed the dressing and the sponge material. This revealed a 12 cm long by 5 cm wide by 5 cm deep defect in the right inner gluteal area. Through gentle irrigation and careful manipulation, the sponge contents were fully removed. It is rinsed with sterile saline as requested. It is then repacked with very gently moistened and squeezed nearly dry Kerlix gauze, a total of 3 ft continuous. Only the area and hearing directly to the granulation tissue was pre moistened, the remainder is left dry and to 4x4s are placed on the outside and then a padded Mepilex type dressing. She tolerated this very well. She is instructed on the instructions from her surgical team. She verbalizes understanding and agreement and has no further questions. Vital Signs Vital signs: Initial Vital Signs Temperature 95.8 F L 04/19/23 00:24 Temperature Source Temporal Artery Scan 04/19/23 00:24 Pulse Rate 102 H 04/19/23 00:24 Respiratory Rate 18 04/19/23 00:24 Blood Pressure 154/69 H 04/19/23 00:24 Blood Pressure Mean 97 04/19/23 00:24 Blood Pressure Position Sitting 04/19/23 00:24 Pulse Oximetry 96 04/19/23 00:24 Oxygen Delivery Method Room Air 04/19/23 00:24 Vital Signs Temperature 95.8 F L 04/19/23 00:24 Pulse Rate 102 H 04/19/23 00:24 Respiratory Rate 18 04/19/23 00:24 Blood Pressure 154/69 H 04/19/23 00:24 Pulse Oximetry 96 04/19/23 00:24 Oxygen Delivery Method Room Air 04/19/23 00:24 Temperature 95.8 F L 04/19/23 00:24 Pulse Rate 102 H 04/19/23 00:24 Respiratory Rate 18 04/19/23 00:24 Blood Pressure 154/69 H 04/19/23 00:24 Pulse Oximetry 96 04/19/23 00:24 Oxygen Delivery Method Room Air 04/19/23 00:24 Discharge Plan Discharge Clinical Impression: Encounter for management of wound VAC Patient Disposition: Home, Self-Care Condition: Improved Additional Instructions: As we discussed, we are not certified to reapply wound VAC supplies. Overall, I am very impressed with how things are healing. All of the sponge and wound VAC products were removed. There were 3 yd of continuous gently moistened gauze applied to the granulated tissue area and then dry on the external surface. It was covered with a padded dressing. It is okay if this leaks a little bit though I am not expecting it to. We spoke with Dr. Ron, the neurosurgical nurse practitioner on-call. They will contact you in the daylight hours to set up a time to come down and have the wound VAC reapplied. Based on how things look, it is okay if this is a day or so. You do not need antibiotics in the interim. If you start feeling more ill again, please contact your surgical team or come to back to the emergency department. It is okay to continue all of your other medications and or use Tylenol or ibuprofen as needed for pain. Bring all of your supplies with you to the wound appointment in case they need them, sometimes the VAC requires a very specific type of dressing and hose that may not be the same stocked in all departments. Activity Level: No Restrictions Discharge Diet: Regular Prescriptions: No Action insulin degludec [Tresiba FlexTouch U-200] 200 unit/mL (3 mL) insulin pen 250 unit subcut DAILY lisinopril 10 mg tablet 10 mg PO QDAY (DME) Dexcom G6 Sensor Device See Rx Instructions .ROUTE .MEDSUPPLY Qty: 3 Patient Comments: USE DIRECTED Rx Instructions: As directed celecoxib 200 mg capsule 200 mg PO Q24H PRN Patient Comments: TAKE 1 CAPSULE BY MOUTH ONCE DAILY WITH A MEAL. USE ONLY NEEDED FOR PAIN Trulicity 1.5 mg/0.5 mL pen injector 1.5 mg subcut Q7D Patient Comments: ADMINISTER 1.5 MG UNDER THE SKIN 1 TIME WEEKLY insulin aspart U-100 [Novolog FlexPen U-100 Insulin] 100 unit/mL (3 mL) insulin pen 1 sliding scale dose subcut TIDWMEAL (DME) Dexcom G6 Transmitter Device See Rx Instructions .ROUTE .MEDSUPPLY Qty: 1 Patient Comments: USE DIRECTED Rx Instructions: As directed (DME) pen needle, diabetic [BD Ultra-Fine Short Pen Needle] 31 gauge x 5/16 needle See Rx Instructions .ROUTE .MEDSUPPLY Qty: 1200 Patient Comments: USE TO ADMINISTER INSULIN AT HOME Rx Instructions: As directed simvastatin 10 mg tablet 10 mg PO QHS insulin aspart U-100 [Novolog FlexPen U-100 Insulin] 100 unit/mL (3 mL) insulin pen 25 unit subcut TIDWMEAL hydromorphone 2 mg tablet 2 mg PO DAILY gabapentin 300 mg capsule 300 mg PO 3XD Follow Up/Referrals: Angelia Ngo MD [Primary Care Provider] - Stand Alone Forms: [facility] Info Instructions
== END 2023-04-19 02:15 | disposition home or self-care (01) ==
LOC: ED 04-19 02:09
PROVIDERS: Emergency Provider Family Medicine; PCP Family Medicine
DX: Z48.01 Encounter for change or removal of surgical wound dressing (principal)
CPT/HCPCS: 99283

== ENCOUNTER 2023-04-19 18:12 | Emergency (ER) | payer OTHER, SELFPAY ==
[2023-04-19 18:16] VITALS: BP 176/75; PULSE 101; RESP 18; TEMP 35.6; O2SAT 96; BMI 50.6
--- NOTE | 2023-04-19 21:24 | PC.NURSE ---
patient DC w/ no further questions. outpatient written orders given to house sup to give to M/S. patient aware of outpatient schedule.
--- NOTE | 2023-04-21 14:59 | ED.GENADULT ---
HPI - General Adult General Chief complaint: Skin/Abscess/Foreign Body Stated complaint: wound issues Time Seen by Provider: 04/19/23 19:25 History of Present Illness HPI narrative: pt seen overnight by dr Camren moreno for wound vac that came off buttock wound. pt had been seen at [facility] for wound vac. called [facility] today and told to have dressing changed bid until can get wound vac replaced. pt back her tonight for dressing change but does not have orders for that. 53-year-old woman presenting to the emergency department for a dressing change. Was seen here overnight following wound VAC that lost suction, requiring removal. She was transitioned to wet to dry dressings, packed here in this emergency department. Recommendations are to continue with b.i.d. wet-to-dry dressings. She does not yet have home healthcare established over this holiday weekend. Thinks a [id number] might be able to help her with some cares. History of necrotizing fasciitis requiring extensive debridement of left buttock and perianal area. [facility] care team apparently recommending b.i.d. dressing changes at this point. Apparently wound VAC was a known problem prior to discharge from [facility]. Location makes maintaining a seal rather challenging. She has not had fever. Is not complaining of significant pain. Related Data Home Medications Medication Instructions Recorded Confirmed blood-glucose sensor (Dexcom G6 #3 ea 05/08/22 04/19/23 Sensor device) blood-glucose transmitter (Dexcom #1 ea 05/08/22 04/19/23 G6 Transmitter device) celecoxib 200 mg capsule 200 mg PO Q24H PRN 05/08/22 04/19/23 dulaglutide 1.5 mg/0.5 mL 1.5 mg subcut Q7D 05/08/22 04/19/23 subcutaneous pen injector (Trulicity) insulin aspart U-100 100 unit/mL 1 sliding scale dose subcut 05/08/22 04/19/23 (3 mL) subcutaneous pen (Novolog TIDWMEAL FlexPen U-100 Insulin aspart) insulin degludec 200 unit/mL (3 250 unit subcut DAILY 05/08/22 04/19/23 mL) subcutaneous pen (Tresiba FlexTouch U-200 insulin) lisinopril 10 mg tablet 10 mg PO QDAY 05/08/22 04/19/23 pen needle, diabetic 31 gauge x #1,200 ea 05/08/22 04/19/23 5/16 (BD Ultra-Fine Short Pen Needle) insulin aspart U-100 100 unit/mL 25 unit subcut TIDWMEAL 04/07/23 04/19/23 (3 mL) subcutaneous pen (Novolog FlexPen U-100 Insulin aspart) simvastatin 10 mg tablet 10 mg PO QHS 04/07/23 04/19/23 gabapentin 300 mg capsule 300 mg PO 3XD 04/19/23 04/19/23 hydromorphone 2 mg tablet 2 mg PO DAILY 04/19/23 04/19/23 Allergies Allergy/AdvReac Type Severity Reaction Status Date / Time atorvastatin [From Lipitor] Allergy sore Verified 04/19/23 00:33 joints and muscles bee venom protein (honey bee) Allergy Anaphylaxis Verified 04/19/23 00:33 Iodinated Contrast Media AdvReac Mild Nausea Verified 04/19/23 00:33 Review of Systems Status of ROS: Reports: 6 or more systems reviewed and unremarkable except as noted in History and below [facility] Medical History Adhesive capsulitis of left shoulder ?M75.02 - Adhesive capsulitis of left shoulder (ICD-10) Subscapularis tendinitis of right shoulder ?M77.8 - Other enthesopathies, not elsewhere classified (ICD-10) Degenerative arthritis of left knee ?M17.12 - Unilateral primary osteoarthritis, left knee (ICD-10) Diabetic neuropathy ?E11.40 - Type 2 diabetes mellitus with diabetic neuropathy, unspecified (ICD-10) Plantar fasciitis ?M72.2 - Plantar fascial fibromatosis (ICD-10) Malignant neoplasm cervix (~2002) ?C53.9 - Malignant neoplasm of cervix uteri, unspecified (ICD-10) Asthma ?J45.909 - Unspecified asthma, uncomplicated (ICD-10) Extended spectrum beta lactamase (ESBL) resistance ?Z16.12 - Extended spectrum beta lactamase (ESBL) resistance (ICD-10) HTN (hypertension) ?I10 - Essential (primary) hypertension (ICD-10) JOLIE (obstructive sleep apnea) ?G47.33 - Obstructive sleep apnea (adult) (pediatric) (ICD-10) GERD (gastroesophageal reflux disease) ?K21.9 - Gastro-esophageal reflux disease without esophagitis (ICD-10) Hyperlipidemia ?E78.5 - Hyperlipidemia, unspecified (ICD-10) Diabetes mellitus ?E11.9 - Type 2 diabetes mellitus without complications (ICD-10) Morbid obesity with BMI of 50.0-59.9, adult ?E66.01 - Morbid (severe) obesity due to excess calories (ICD-10) ?Z68.43 - Body mass index [BMI] 50.0-59.9, adult (ICD-10) Osteoarthritis of knees, bilateral ?M17.0 - Bilateral primary osteoarthritis of knee (ICD-10) Surgical History H/O colposcopy with cervical biopsy ?Z98.890 - Other specified postprocedural states (ICD-10) S/P laparoscopic cholecystectomy (~02/2005) ?Z90.49 - Acquired absence of other specified parts of digestive tract (ICD-10) S/P right knee arthroscopy (03/15/09) ?Z98.890 - Other specified postprocedural states (ICD-10) Status post arthroscopic partial medial meniscectomy ?Z98.890 - Other specified postprocedural states (ICD-10) Status post right rotator cuff repair (01/10/15) ?Z98.890 - Other specified postprocedural states (ICD-10) History of foot surgery (07/05/18) ?Z98.890 - Other specified postprocedural states (ICD-10) Family History Paternal Grandmother Alcohol dependence Aunt Breast cancer Paternal Grandfather Diabetes Mother Colon cancer High blood pressure Other Drug dependence Social History Narrative: Works as recreation advisor for [employer] What is your current living situation?: I presently have a place to live Problems where you live: no known problems Problems where you live details: none In the past 12 months, utilities in danger of being shut off: no In the past 12 mos, have been you worried that your food would run out before you had money to buy more?: never true In the past 12 mos, the food you bought just didn't last and you didn't have money to buy more?: never true Highest level of school completed/degree received: Bachelor's degree Smoking Status: Former smoker Do you use any of these nicotine containing products: None Second hand tobacco smoke exposure: No How often do you have a drink containing alcohol: never AUDIT-C Alcohol total score: 0 Non-prescribed substance use: denies use Caffeine: Yes How often does anyone, including family, friends and others, physically hurt you: never How often does anyone, including family, friends and others, insult or talk down to you: never How often does anyone, including family, friends and others, threaten you with harm: never How often does anyone, including family, friends and others, scream or curse at you: never service: No Exam Narrative: Exam Narrative: Very pleasant. NAD. In exam for where care would be challenging. Heart in regular rate. Moved to another exam room room able to evaluate better. There R2 rectangular Mepilex dressings over the top of packed Kerlix gauze. This is lightly yellow green stained and readily falls out of gaping surgically excise fist size + wound in the left mid medial buttock area. This extends toward the anal area. Tissues have some staining from yellowish green material but otherwise wound looks quite clean at this time. Const: Documenting provider has reviewed patient's vital signs: yes Course Vital Signs Vital signs: Initial Vital Signs Temperature 96.1 F L 04/19/23 18:16 Temperature Source Temporal Artery Scan 04/19/23 18:16 Pulse Rate 101 H 04/19/23 18:16 Respiratory Rate 18 04/19/23 18:16 Blood Pressure 176/75 H 04/19/23 18:16 Blood Pressure Mean 108 H 04/19/23 18:16 Blood Pressure Position Supine 04/19/23 18:16 Pulse Oximetry 96 04/19/23 18:16 Oxygen Delivery Method Room Air 04/19/23 18:16 Vital Signs Temperature 96.1 F L 04/19/23 18:16 Pulse Rate 101 H 04/19/23 18:16 Respiratory Rate 18 04/19/23 18:16 Blood Pressure 176/75 H 04/19/23 18:16 Pulse Oximetry 96 04/19/23 18:16 Oxygen Delivery Method Room Air 04/19/23 18:16 Temperature 96.1 F L 04/19/23 18:16 Pulse Rate 101 H 04/19/23 18:16 Respiratory Rate 18 04/19/23 18:16 Blood Pressure 176/75 H 04/19/23 18:16 Pulse Oximetry 96 04/19/23 18:16 Oxygen Delivery Method Room Air 04/19/23 18:16 Medical Decision Making MDM Narrative Medical decision making narrative: As recommended for dressing change. Removed Mepilex bandages. Removed packing. Dabbed and rinsed tissues with saline soaked gauze. Repacked with saline dampened wet to dry Kerlix roll. Covered with large Mepilex dressing. Very well tolerated. Will be transitioning dressing changes to med surge so that hopefully Ms. Alcaraz does not have to potentially wait extended period of time in the emergency department. Writing orders to this effect. See patient discharge plan Medical Records Medical records reviewed: Yes I reviewed the patient's medical records Discharge Plan Discharge Clinical Impression: Encounter for wound care Patient Disposition: Home, Self-Care Condition: Stable Additional Instructions: Please return for twice daily dressing changes over the next 2 days as discussed. Can present to the emergency department who will direct you to med surge. I believe anticipated times are 9:00 a.m. and 9:00 p.m. You might benefit from getting/using a toilet lid bidet; discuss with your care team? Prescriptions: No Action insulin degludec [Tresiba FlexTouch U-200] 200 unit/mL (3 mL) insulin pen 250 unit subcut DAILY lisinopril 10 mg tablet 10 mg PO QDAY (DME) Dexcom G6 Sensor Device See Rx Instructions .ROUTE .MEDSUPPLY Qty: 3 Patient Comments: USE DIRECTED Rx Instructions: As directed celecoxib 200 mg capsule 200 mg PO Q24H PRN Patient Comments: TAKE 1 CAPSULE BY MOUTH ONCE DAILY WITH A MEAL. USE ONLY NEEDED FOR PAIN Trulicity 1.5 mg/0.5 mL pen injector 1.5 mg subcut Q7D Patient Comments: ADMINISTER 1.5 MG UNDER THE SKIN 1 TIME WEEKLY insulin aspart U-100 [Novolog FlexPen U-100 Insulin] 100 unit/mL (3 mL) insulin pen 1 sliding scale dose subcut TIDWMEAL (DME) Dexcom G6 Transmitter Device See Rx Instructions .ROUTE .MEDSUPPLY Qty: 1 Patient Comments: USE DIRECTED Rx Instructions: As directed (DME) pen needle, diabetic [BD Ultra-Fine Short Pen Needle] 31 gauge x 5/16 needle See Rx Instructions .ROUTE .MEDSUPPLY Qty: 1200 Patient Comments: USE TO ADMINISTER INSULIN AT HOME Rx Instructions: As directed simvastatin 10 mg tablet 10 mg PO QHS insulin aspart U-100 [Novolog FlexPen U-100 Insulin] 100 unit/mL (3 mL) insulin pen 25 unit subcut TIDWMEAL hydromorphone 2 mg tablet 2 mg PO DAILY gabapentin 300 mg capsule 300 mg PO 3XD Follow Up/Referrals: Angelia Ngo MD [Primary Care Provider] - Stand Alone Forms: My[facility] Info Instructions
== END 2023-04-19 20:28 | disposition home or self-care (01) ==
PROVIDERS: Emergency Provider Family Medicine; PCP Family Medicine
DX: Z48.01 Encounter for change or removal of surgical wound dressing (principal)
CPT/HCPCS: 99211; 99282; 99283

== ENCOUNTER 2023-04-21 20:48 | Outpatient (RCR) | payer OTHER, SELFPAY ==
--- NOTE | 2023-04-20 09:47 | PC.NURSE ---
pt came in for a dressing change. wet to dry dressing was removed, with no problems, no pain. dressing was done, per written ordered, Dr. Magallon. Kerlix was wet/damp, a whole roll was used to pack the wound. see ed notes for size/ dressing was covered with a Mepilex. pt had no pain she will be back to night for a dressing change. told pt it was ok to shower before she comes in for dressing change.
--- NOTE | 2023-04-20 21:19 | PC.NURSE ---
Pt in for a dressing change on left buttock. Dressing was removed and new dressing changed done per orders. Whole roll of Kerlix used to pack the wound. Kerlix was wet to dry. Covered with Mepilex. Pt tolerated well wit no pain.
--- NOTE | 2023-04-21 11:24 | PC.NURSE ---
Addendum entered by Charity Talavera RN 04/21/23 11:29: Pt left unit at 0920. Original Note: Dressing Change by RN: Pt ambulated into room at 0900. Removed old dressing and packing. Packing as yellow tinge, no odor. Skin at edge of wound pinkish red. Wound bed moist and red. 2mm spot at the 2 o clock location that is black. Keflex moistened with sterile water and packed and covered with Mepilex. Pt tolerated procedure well. Ambulated off the unit, wheeled out to ED entrance.
--- NOTE | 2023-04-21 22:09 | PC.NURSE ---
Patient arrived to unit and taken to room. Kerlix packing had fallen out per patient. Mepilex x2 removed. Area cleansed with normal saline. Moistened (with NS) Kerlix packed into wound and covered with 2 mepilex. Tolerated well. No further questions. Patient reports she will have f/u appt tomorrow.
== END 2024-03-09 23:59 | disposition home or self-care (01) ==
LOC: MS OUT 20:48
PROVIDERS: PCP Family Medicine; Visit Provider Family Medicine
DX: Z48.00 Encounter for change or removal of nonsurgical wound dressing (principal); M72.6 Necrotizing fasciitis; L02.31 Cutaneous abscess of buttock
CPT/HCPCS: 99211